=== PATIENT | male | born 1945 | race Caucasian/White ===

== ENCOUNTER 2018-02-15 18:29 | Emergency (ER) | payer OTHER ==
--- NOTE | 2018-02-15 18:33 | ER Report ---
History and Physical Time Seen By MD: 18:32 HPI/ROS CHIEF COMPLAINT: Syncopal episode HISTORY OF PRESENT ILLNESS: This is a 72-year-old male presents to emergency department for a syncopal episode patient states that he had just ordered dinner at a fast food restaurant and as the last thing he remembers, then he remembers being on the floor, people surrounding him and making sure he was okay. EMS arrived and transfer the patient in the emergency department. Patient arrives alert and oriented. He does have a large hematoma to the left posterior scalp. Patient denies headache or C-spine tenderness. Patient is traveling through from a [facility]. Patient is also diabetic, has had bypass surgery and 3 heart attacks, pacemaker and ablation. Patient denies chest pain or shortness of breath. No nausea or vomiting. EMS Accu-Chek 208. Patient denies recent fevers or chills. No recent illnesses. No change in vision. REVIEW OF SYSTEMS: Constitutional: No fever, no chills. Eyes: No discharge. ENT: No sore throat. Cardiovascular: No chest pain, no palpitations. Respiratory: No cough, no shortness of breath. Gastrointestinal: No abdominal pain, no vomiting. Genitourinary: No hematuria. Musculoskeletal: No back pain. Skin: As above. Neurological: As above. Allergies: Coded Allergies: niacin (Verified Allergy, Unknown, 02/15/18) FLUSHING AND MUSCLES CRAMPS Home Meds Reported Medications Insulin Aspart 100 Un/Ml Pen (NOVOLOG FLEXPEN) 100 Unit/1 Ml Insuln.pen, 100 UNIT SQ TID, ML 02/15/18 Vitamin B Complex (VITAMIN B COMPLEX) 1 Each Capsule, 1 EACH PO QDAY, CAPSULE 02/15/18 Warfarin Sodium (WARFARIN SODIUM) 5 Mg Tablet, 5 MG PO QDAY, TAB 02/15/18 Omeprazole (OMEPRAZOLE) 20 Mg Capsule.dr, 2 CAP PO QDAY, CAP 02/15/18 Multivitamin With Minerals (MULTIPLE VITAMIN) 1 Each Tablet, 1 EACH PO BID, TAB 02/15/18 Metoprolol Succinate (METOPROLOL SUCCINATE) 50 Mg Tab.er.24h, 4 TAB PO QDAY, TAB 02/15/18 Metformin Hcl (METFORMIN HCL) 1,000 Mg Tablet, 1 TAB PO BID, TAB 02/15/18 Magnesium Oxide (MAG-OXIDE) 400 Mg Tablet, 400 MG PO BID 8/3/18 Lisinopril (LISINOPRIL) 40 Mg Tablet, 40 MG PO QDAY, TAB 02/15/18 Insulin Glargine 100 Un/Ml Pen (LANTUS SOLOSTAR PEN) 100 Unit/1 Ml Insuln.pen, 50 UNIT SQ BID, ML 02/15/18 Furosemide (FUROSEMIDE) 40 Mg Tablet, 1 TAB PO BID, TAB 02/15/18 [place]-3/Dha/Epa/Fish Oil (Fish Oil 1,000 mg Softgel) 1,000 Mg (120 Mg-180 Mg) Capsule, PO BID 02/15/18 Ferrous Sulfate (FERROUS SULFATE) 325 Mg Tablet, 325 MG PO TID 02/15/18 Carboxymethylcellulose Sod (REFRESH CELLUVISC) 0.4 Ml Soln, 0.4 ML OU QID 02/15/18 Calcium Carbonate/Vitamin D3 (CALCIUM CARB 500 MG TAB CHEW) 1 Each Tab.chew, 1 EACH PO TID, TAB.CHEW 02/15/18 Atorvastatin Calcium (LIPITOR) 40 Mg Tablet, 2 TAB PO QDAY, TAB 02/15/18 Aspirin (ASPIRIN EC) 81 Mg Tablet.dr, 81 MG PO QDAY, TAB 02/15/18 Amlodipine Besylate (AMLODIPINE BESYLATE) 10 Mg Tablet, 1 TAB PO QDAY, TAB 02/15/18 Past Medical/Surgical History The patient has a past medical and surgical history of 3 myocardial infarctions , atrial fibrillation, hypertension, pacemaker, bypass surgery, hypercholesterolemia, diabetes, coronary artery stents. Reviewed Nurses Notes: Yes Constitutional Vital Sign - Last 24 Hours 02/15/18 02/15/18 02/15/18 02/15/18 18:44 18:46 19:13 19:15 Temp 97.8 Pulse 82 77 78 Resp 16 B/P (MAP) 130/108 121/77 (92) 123/81 (95) Pulse Ox 85 O2 Delivery Room Air O2 Flow Rate 2.0 02/15/18 02/15/18 02/15/18 02/15/18 19:18 20:00 20:30 20:45 Pulse 78 80 83 Resp 22 17 B/P (MAP) 122/68 (86) 115/77 (90) Pulse Ox 95 95 02/15/18 02/15/18 02/15/18 02/15/18 21:00 21:11 21:16 21:30 Pulse 69 64 Resp 16 B/P (MAP) 117/76 (90) 133/69 (90) Pulse Ox 94 95 O2 Delivery Room Air 02/15/18 22:00 Pulse 64 B/P (MAP) 120/68 (85) Pulse Ox 95 O2 Delivery Room Air Intake and Output 02/15/18 02/15/18 02/16/18 15:00 23:00 07:00 Intake Total 500 ml Balance 500 ml Physical Exam General Appearance: The patient is alert, has no immediate need for airway protection and no signs of toxicity. Eyes: Pupils equal and round no pallor or injection. EOMs intact. No nystagmus. ENT, Mouth: Mucous membranes are moist. Respiratory: There are no retractions, lungs are clear to auscultation. Cardiovascular: Irregular rate and rhythm, no murmurs, clicks or rubs. Gastrointestinal: Abdomen is soft and non tender, no masses, bowel sounds normal. Neurological: Alert and oriented 4. Moving all extremities. Following all commands. No focal neuro deficits. Skin: Hematoma to the left posterior scalp no lacerations. Musculoskeletal: Neck is supple non tender. Extremities are nontender, nonswollen and have full range of motion. DIFFERENTIAL DIAGNOSIS: After history and physical exam differential diagnosis was considered for syncope including but not limited to vasovagal syncope, arrhythmia, dehydration, and blood loss. Medical Decision Making Data Points Result Diagram: 02/15/18182902/15/18 1830 Laboratory Hematology Test 02/15/18 18:30 02/15/18 21:20 02/15/18 21:21 Red Blood Count 4.67 M/uL (4.00-5.60) Mean Corpuscular Volume 89.4 fL (80.0-96.0) Mean Corpuscular Hemoglobin 30.9 pg (26.0-33.0) Mean Corpuscular Hemoglobin Concent 34.6 g/dL (32.0-36.0) Red Cell Distribution Width 16.9 % (11.5-14.5) Mean Platelet Volume 10.1 fL (7.2-11.1) Neutrophils (%) (Auto) 75.8 % (39.4-72.5) Lymphocytes (%) (Auto) 10.3 % (17.6-49.6) Monocytes (%) (Auto) 7.1 % (4.1-12.4) Eosinophils (%) (Auto) 4.2 % (0.4-6.7) Basophils (%) (Auto) 2.6 % (0.3-1.4) Nucleated RBC Relative Count (auto) 0.0 /100WBC Neutrophils # (Auto) 8.1 K/uL (2.0-7.4) Lymphocytes # (Auto) 1.1 K/uL (1.3-3.6) Monocytes # (Auto) 0.8 K/uL (0.3-1.0) Eosinophils # (Auto) 0.4 K/uL (0.0-0.5) Basophils # (Auto) 0.3 K/uL (0.0-0.1) Nucleated RBC Absolute Count (auto) 0.00 K/uL Sodium Level 142 mmol/L (137-145) Potassium Level 3.3 mmol/L (3.5-5.0) Chloride Level 100 mmol/L (98-107) Carbon Dioxide Level 27 mmol/L (22-30) Blood Urea Nitrogen 36 mg/dl (9-21) Creatinine 1.40 mg/dl (0.66-1.25) Glomerular Filtration Rate Calc 49.7 Random Glucose 189 mg/dl (75-110) Calcium Level 9.1 mg/dl (8.4-10.2) Total Bilirubin 0.8 mg/dl (0.2-1.3) Aspartate Amino Transf (AST/SGOT) 35 U/L (0-35) Alanine Aminotransferase (ALT/SGPT) 34 U/L (0-56) Alkaline Phosphatase 115 U/L (0-126) Total Protein 7.4 g/dl (6.3-8.2) Albumin 4.4 g/dl (3.5-5.0) Troponin I 0.055 ng/ml Urine Color Yellow Urine Clarity Clear Urine pH 5.0 pH (4.8-9.5) Urine Specific [place] 1.010 Urine Protein Negative mg/dL (NEGATIVE) Urine Glucose (UA) Negative mg/dL (NEGATIVE) Urine Ketones Negative mg/dL (NEGATIVE) Urine Blood Small (NEGATIVE) Urine Nitrite Negative (NEGATIVE) Urine Bilirubin Negative (NEGATIVE) Urine Urobilinogen 4.0 mg/dL (0.2-1.9) Urine Leukocyte Esterase Negative (NEGATIVE) Urine RBC 3 /HPF (0-2/HPF) Urine WBC 1 /HPF (0-5/HPF) Urine Squamous Epithelial Cells None /LPF (</=FEW) Urine Bacteria Negative /HPF (NONE-FEW) Urine Mucus Few /HPF (NONE-FEW) Chemistry Test 02/15/18 18:30 02/15/18 21:20 02/15/18 21:21 White Blood Count 10.6 k/uL (4.5-11.0) Red Blood Count 4.67 M/uL (4.00-5.60) Hemoglobin 14.4 g/dL (14.0-18.0) Hematocrit 41.7 % (42.0-52.0) Mean Corpuscular Volume 89.4 fL (80.0-96.0) Mean Corpuscular Hemoglobin 30.9 pg (26.0-33.0) Mean Corpuscular Hemoglobin Concent 34.6 g/dL (32.0-36.0) Red Cell Distribution Width 16.9 % (11.5-14.5) Platelet Count 239 K/uL (150-450) Mean Platelet Volume 10.1 fL (7.2-11.1) Neutrophils (%) (Auto) 75.8 % (39.4-72.5) Lymphocytes (%) (Auto) 10.3 % (17.6-49.6) Monocytes (%) (Auto) 7.1 % (4.1-12.4) Eosinophils (%) (Auto) 4.2 % (0.4-6.7) Basophils (%) (Auto) 2.6 % (0.3-1.4) Nucleated RBC Relative Count (auto) 0.0 /100WBC Neutrophils # (Auto) 8.1 K/uL (2.0-7.4) Lymphocytes # (Auto) 1.1 K/uL (1.3-3.6) Monocytes # (Auto) 0.8 K/uL (0.3-1.0) Eosinophils # (Auto) 0.4 K/uL (0.0-0.5) Basophils # (Auto) 0.3 K/uL (0.0-0.1) Nucleated RBC Absolute Count (auto) 0.00 K/uL Glomerular Filtration Rate Calc 49.7 Calcium Level 9.1 mg/dl (8.4-10.2) Total Bilirubin 0.8 mg/dl (0.2-1.3) Aspartate Amino Transf (AST/SGOT) 35 U/L (0-35) Alanine Aminotransferase (ALT/SGPT) 34 U/L (0-56) Alkaline Phosphatase 115 U/L (0-126) Total Protein 7.4 g/dl (6.3-8.2) Albumin 4.4 g/dl (3.5-5.0) Troponin I 0.055 ng/ml Urine Color Yellow Urine Clarity Clear Urine pH 5.0 pH (4.8-9.5) Urine Specific [place] 1.010 Urine Protein Negative mg/dL (NEGATIVE) Urine Glucose (UA) Negative mg/dL (NEGATIVE) Urine Ketones Negative mg/dL (NEGATIVE) Urine Blood Small (NEGATIVE) Urine Nitrite Negative (NEGATIVE) Urine Bilirubin Negative (NEGATIVE) Urine Urobilinogen 4.0 mg/dL (0.2-1.9) Urine Leukocyte Esterase Negative (NEGATIVE) Urine RBC 3 /HPF (0-2/HPF) Urine WBC 1 /HPF (0-5/HPF) Urine Squamous Epithelial Cells None /LPF (</=FEW) Urine Bacteria Negative /HPF (NONE-FEW) Urine Mucus Few /HPF (NONE-FEW) Urinalysis Test 02/15/18 21:21 Urine Color Yellow Urine Clarity Clear Urine pH 5.0 pH (4.8-9.5) Urine Specific [place] 1.010 Urine Protein Negative mg/dL (NEGATIVE) Urine Glucose (UA) Negative mg/dL (NEGATIVE) Urine Ketones Negative mg/dL (NEGATIVE) Urine Blood Small (NEGATIVE) Urine Nitrite Negative (NEGATIVE) Urine Bilirubin Negative (NEGATIVE) Urine Urobilinogen 4.0 mg/dL (0.2-1.9) Urine Leukocyte Esterase Negative (NEGATIVE) Urine RBC 3 /HPF (0-2/HPF) Urine WBC 1 /HPF (0-5/HPF) Urine Squamous Epithelial Cells None /LPF (</=FEW) Urine Bacteria Negative /HPF (NONE-FEW) Urine Mucus Few /HPF (NONE-FEW) EKG/Imaging EKG Interpretation 12 lead EKG: Time of EKG 2014 Rhythm: Sinus rhythm with a first-degree AV block. [place]: Left QRS: normal ST segments: No ST depression or elevation identified. The patient does have a pacemaker for a known A. fib, the patient is in and out of A. fib and sinus rhythm, I did get a follow-up EKG at 2018, showing A. fib with a rate of 90 bpm. No pacer spikes. 12 lead EKnd EKG, 2018 Rhythm: Atrial fibrillation, 90 bpm. [place]: Left QRS: normal ST segments: No ST depression or elevation identified. [ ] Imaging Location: [facility] [place] Patient: Tutu Tomlinson : 1945 Visit/Account:[id number] Date of Sevice: 02/15/2018 SHOULDER MIN 2 VIEWS RIGHT COMPARISONS: None. ADDITIONAL PERTINENT HISTORY: Fall with pain FINDINGS: Osseous structures: Subchondral sclerosis and osteophyte formation involving the inferior medial aspects of the right glenohumeral joint as well as involving the right acromioclavicular joint. Joint spaces: Mild joint space narrowing involving the right glenohumeral joint and the right acromioclavicular joint. Surrounding soft tissues: Negative. IMPRESSION: 1. Osteoarthritic changes involving the right shoulder. 2. No acute appearing bony abnormalities. Report Dictated By: Jony Watson MD at 02/15/2018 9:03 PM Report E-Signed By: Jony Watson MD at 02/15/2018 9:04 PM WSN:[id number] Location: [facility] [place] Patient: Tutu Tomlinson : 1945 Visit/Account:[id number] Date of Sevice: 02/15/2018 C-SPINE W/O CONTRAST COMPARISONS: None. ADDITIONAL PERTINENT HISTORY: Syncope with head injury TECHNIQUE: Multiple axial images were obtained from the skull base through the upper thoracic spine with coronal and sagittal reformatted images obtained without IV contrast. One of the following dose optimization techniques was utilized in the performance of this exam: Automated exposure control; adjustment of the mA and/or kV according to the patient's size; or use of an iterative reconstruction technique. Specific details can be referenced in the facility's radiology CT exam operational policy. FINDINGS. Vertebral body heights and alignment: Negative. Vertebral bodies: Anteriorly and posteriorly directed osteophytes at multiple levels. Mild facet hypertrophic changes. Disc spaces: Disc space narrowing at multiple levels. Cranial cervical junction: Negative. Cervical thoracic junction: Negative. Surrounding soft tissues: Calcified atherosclerotic plaque involving the thoracic aortic arch as well as the origins of the great vessels. Lung apices: Negative. IMPRESSION: 1. Spondylitic change involving the cervical spine. 2. No acute appearing bony abnormalities. Report Dictated By: Jony Watson MD at 02/15/2018 8:10 PM Report E-Signed By: Jony Watson MD at 02/15/2018 8:13 PM WSN:[id number] Location: [facility] [place] Patient: Tutu Tomlinson : 1945 Visit/Account:[id number] Date of Sevice: 02/15/2018 2 VIEWS CHEST INDICATION: Syncope. COMPARISON: None available FINDINGS: Cardiac silhouette is enlarged. Mediastinal silhouette and pulmonary vessels are within normal limits. Left subclavian pacemaker is in place. Sternotomy changes. There is no focal infiltrate or lobar consolidation. There is no pneumothorax or pleural effusion. No nodule. Upper abdomen is unremarkable. No acute bony abnormality. IMPRESSION: 1. Enlarged cardiac silhouette without edema or infiltrate. Report Dictated By: Jewel Ventura at 02/15/2018 8:02 PM Report E-Signed By: Jewel Ventura at 02/15/2018 8:04 PM WSN:[id number] Location: [facility] [place] Patient: Tutu Tomlinson : 1945 Visit/Account:[id number] Date of Sevice: 02/15/[address] scan without contrast COMPARISONS: None ADDITIONAL PERTINENT HISTORY: Syncope with head injury TECHNIQUE: Multiple axial images were obtained from the skull base to the vertex without IV contrast. One of the following dose optimization techniques was utilized in the performance of this exam: Automated exposure control; adjustment of the mA and/or kV according to the patient's size; or use of an iterative reconstruction technique. Specific details can be referenced in the facility's radiology CT exam operational policy. FINDINGS: Midline shift: Negative Ventricles: Negative Brain parenchyma: Patchy hypoattenuation within the periventricular and subcortical white matter, nonspecific but likely representing small vessel ischemic change on a chronic basis. No intraparenchymal hemorrhage or mass effect. Extra-axial spaces: Negative Intracranial vasculature: Negative Osseous structures: Negative Paranasal sinuses and mastoid air cells: Moderate sized mucus retention cyst involving the right maxillary sinus. Surrounding soft tissues and orbits: Left parietal scalp soft tissue hematoma. Otherwise negative IMPRESSION: 1. Left parietal scalp soft tissue hematoma. 2. Age-related changes as described above. 3. No evidence of acute intracranial pathology. Report Dictated By: Jony Watosn MD at 02/15/2018 8:13 PM Report E-Signed By: Jony Watson MD at 02/15/2018 8:16 PM WSN:[id number] ED Course/Re-evaluation Clinical Indication for ER IV: Hydration, IV Access ED Course The patient was admitted to room. A history and physical were obtained. Current diagnoses were considered. An IV was started. A 500 mL bolus was given. A CBC, CMP, troponin were obtained. Chemistries showing potassium 3.3, BUN 36, creatinine 1.4, glucose 189. 1st troponin 0.056, in the indeterminate range, I did discuss this with the patient, I did tell him I did like to repeat the troponin, the patient is agreeable with this, the delta troponin was 0.055. Basically unchanged, patient has denied chest pain during his stay in the emergency Department he denied chest pain during his syncopal episode. UA, showing small blood which could be from the fall, no urinary complaints. CT of the head neck were negative. Negative chest x-ray, negative right shoulder. Patient was also given 650 mg Tylenol for his aches and pains. The patient had no other questions or concerns at this time and was discharged home. I did tell the patient that his syncopal episode could be secondary to the altitude and retreat to a lower elevation as soon as possible. I also instructed the patient to wear his CPAP tonight. The patient's hematoma to the left posterior scalp was covered with a dressing and secured. 02/15/2018 8:47:37 pm I did review the results with the patient, negative head negative neck, negative chest. Lab studies relatively unremarkable. I did tell the patient that the one test that was in the indeterminate range was the troponin. I did recommend that he stay for an additional 2-3 hours for a repeat troponin. The patient is agreeable. He is also now complaining of right shoulder pain that seems to be worse with movement, I did order an x-ray of the right shoulder. Decision to Disposition Date: Feb 15, 2018 Decision to Disposition Time: 22:09 Depart Departure Latest Vital Signs Vital Signs Date Time Temp Pulse Resp B/P (MAP) Pulse Ox O2 Delivery O2 Flow Rate FiO2 02/15/18 22:00 64 120/68 (85) 95 Room Air 02/15/18 21:00 16 02/15/18 18:46 2.0 02/15/18 18:44 97.8 Impression: Primary Impression: Syncopal episodes Condition: Improved Disposition: HOME OR SELF-CARE Patient Instructions: Syncope (ED) Additional Instructions: You're syncopal episode could be secondary to the altitude, you are from sea [place] at 7200 feet, my recommendation is to retreat to a lower elevation as soon as possible. Be sure to drink plenty of fluids, be sure to usual or CPAP at night. Be sure to check blood sugar regularly. Continue taking your current medications. You're head CT was negative for bleeding. You're cervical spine CT was negative for anything concerning. Chest x-ray was negative for anything concerning. Should she develop chest pain, shortness of breath headaches or any lightheadedness during her vacation go to the nearest emergency department for reevaluation. When he returned home be sure to follow-up with your primary care provider. Return to the emergency department for any other concerns or worsening symptoms. Problem Qualifiers Primary Impression: Syncopal episodes Syncope type: unspecified Qualified Codes: R55 - Syncope and collapse ANA PIÑA DIRECTOR OF MATERIALS MANAGEMENT-BC Feb 15, 2018 18:32
[2018-02-15] MEDS ORDERED: NS(*) 0.9% 500 ML BAG 500 ML IV ONE (18:51)
[2018-02-15 19:07] LABS: PLATELET COUNT, AUTOMATED 239 K/uL (150-450)
--- NOTE | 2018-02-15 20:07 | RADIOLOGY IMAGING REPORT ---
FACILITY: [facility] - [place], [place] PATIENT NAME: Tutu Tomlinson : 1945 MR: [id number] V: [id number] EXAM DATE: ORDERING PHYSICIAN: ANA PIÑA TECHNOLOGIST: Location: [facility] Patient: Tutu Tomlinson : 1945 Visit/Account:[id number] Date of Sevice: 02/15/2018 2 VIEWS CHEST INDICATION: Syncope. COMPARISON: None available FINDINGS: Cardiac silhouette is enlarged. Mediastinal silhouette and pulmonary vessels are within normal limits . Left subclavian pacemaker is in place. Sternotomy changes. There is no focal infiltrate or lobar consolidation. There is no pneumothorax or pleural effusion. No nodule. Upper abdomen is unremarkable. No acute bony abnormality. IMPRESSION: 1. Enlarged cardiac silhouette without edema or infiltrate. Report Dictated By: Jewel Ventura at 02/15/2018 8:02 PM Report E-Signed By: Jewel Ventura at 02/15/2018 8:04 PM WSN:[id number]
--- NOTE | 2018-02-15 20:17 | RADIOLOGY IMAGING REPORT ---
FACILITY: [facility] - [place] PATIENT NAME: Tutu Tomlinson : 1945 MR: [id number] V: [id number] EXAM DATE: ORDERING PHYSICIAN: ANA PIÑA TECHNOLOGIST: [place] [facility] [place] Patient: Tutu Tomlinson : 1945 Visit/Account:[id number] Date of Sevice: 02/15/2018 C-SPINE W/O CONTRAST COMPARISONS: None. ADDITIONAL PERTINENT HISTORY: Syncope with head injury TECHNIQUE: Multiple axial images were obtained from the skull base through the upper thoracic spine with coronal and sagittal reformatted images obtained without IV contrast. One of the following dose optimization techniques was utilized in the performance of this exam: Automated exposure control; adj ustment of the mA and/or kV according to the patient's size; or use of an iterative reconstruction t echnique. Specific details can be referenced in the facility's radiology CT exam operational policy. FINDINGS. Vertebral body heights and alignment: Negative. Vertebral bodies: Anteriorly and posteriorly directed osteophytes at multiple levels. Mild facet hype rtrophic changes. Disc spaces: Disc space narrowing at multiple levels. Cranial cervical junction: Negative. Cervical thoracic junction: Negative. Surrounding soft tissues: Calcified atherosclerotic plaque involving the thoracic aortic arch as well as the origins of the great vessels. Lung apices: Negative. IMPRESSION: 1. Spondylitic change involving the cervical spine. 2. No acute appearing bony abnormalities. Report Dictated By: Jony Watson MD at 02/15/2018 8:10 PM Report E-Signed By: Jony Watson MD at 02/15/2018 8:13 PM WSN:[id number]
--- NOTE | 2018-02-15 20:19 | RADIOLOGY IMAGING REPORT ---
FACILITY: [facility] PATIENT NAME: Tutu Tomlinson : 1945 MR: [id number] V: [id number] EXAM DATE: ORDERING PHYSICIAN: ANA PIÑA TECHNOLOGIST: Location: [facility] [place] Patient: Tutu Tomlinson : 1945 Visit/Account:[id number] Date of Sevice: 02/15/[address] scan without contrast COMPARISONS: None ADDITIONAL PERTINENT HISTORY: Syncope with head injury TECHNIQUE: Multiple axial images were obtained from the skull base to the vertex without IV contrast . One of the following dose optimization techniques was utilized in the performance of this exam: Aut omated exposure control; adjustment of the mA and/or kV according to the patient's size; or use of an iterative reconstruction technique. Specific details can be referenced in the facility's radiology CT exam operational policy. FINDINGS: Midline shift: Negative Ventricles: Negative Brain parenchyma: Patchy hypoattenuation within the periventricular and subcortical white matter, no nspecific but likely representing small vessel ischemic change on a chronic basis. No intraparenchyma l hemorrhage or mass effect. Extra-axial spaces: Negative Intracranial vasculature: Negative Osseous structures: Negative Paranasal sinuses and mastoid air cells: Moderate sized mucus retention cyst involving the right max illary sinus. Surrounding soft tissues and orbits: Left parietal scalp soft tissue hematoma. Otherwise negative IMPRESSION: 1. Left parietal scalp soft tissue hematoma. 2. Age-related changes as described above. 3. No evidence of acute intracranial pathology. Report Dictated By: Jony Watson MD at 02/15/2018 8:13 PM Report E-Signed By: Jony Watson MD at 02/15/2018 8:16 PM WSN:[id number]
[2018-02-15] MEDS ORDERED: ACETAMINOPHEN 325 MG TAB PO ONE (20:40)
--- NOTE | 2018-02-15 21:09 | RADIOLOGY IMAGING REPORT ---
FACILITY: [facility] - [place] PATIENT NAME: Tutu Tomlinson : 1945 MR: [id number] V: [id number] EXAM DATE: ORDERING PHYSICIAN: ANA PIÑA TECHNOLOGIST: Location: [facility] Patient: Tutu Tomlinson : 1945 Visit/Account:[id number] Date of Sevice: 02/15/2018 SHOULDER MIN 2 VIEWS RIGHT COMPARISONS: None. ADDITIONAL PERTINENT HISTORY: Fall with pain FINDINGS: Osseous structures: Subchondral sclerosis and osteophyte formation involving the inferior medial aspe cts of the right glenohumeral joint as well as involving the right acromioclavicular joint. Joint spaces: Mild joint space narrowing involving the right glenohumeral joint and the right acromio clavicular joint. Surrounding soft tissues: Negative. IMPRESSION: 1. Osteoarthritic changes involving the right shoulder. 2. No acute appearing bony abnormalities. Report Dictated By: Jony Watson MD at 02/15/2018 9:03 PM Report E-Signed By: Jony Watson MD at 02/15/2018 9:04 PM WSN:[id number]
[2018-02-15] MEDS ORDERED: OMEG10007 PO (21:41)
[2018-02-15] MEDS ORDERED: MULT-1335 PO (21:41)
[2018-02-15] MEDS ORDERED: METF-421 PO (21:41)
[2018-02-15] MEDS ORDERED: ASPI81TA86 PO (21:41)
[2018-02-15] MEDS ORDERED: [UNRECOGNIZED DRUG - OTHER] OU (21:41)
[2018-02-15] MEDS ORDERED: VITA1CAP46 PO (21:41)
[2018-02-15] MEDS ORDERED: CALC-605 PO (21:41)
[2018-02-15] MEDS ORDERED: WARF5TAB23 PO (21:41)
[2018-02-15] MEDS ORDERED: FURO-47 PO (21:41)
[2018-02-15] MEDS ORDERED: INSU100I35 SQ (21:41)
[2018-02-15] MEDS ORDERED: ATOR40TA24 PO (21:41)
[2018-02-15] MEDS ORDERED: MAGN400T4 PO (21:41)
[2018-02-15] MEDS ORDERED: METO50TA19 PO (21:41)
[2018-02-15] MEDS ORDERED: LISI-374 PO (21:41)
[2018-02-15] MEDS ORDERED: FERR-53 PO (21:41)
[2018-02-15] MEDS ORDERED: OMEP-125 PO (21:41)
[2018-02-15] MEDS ORDERED: AMLO-99 PO (21:41)
[2018-02-15] MEDS ORDERED: INSU100I30 SQ (21:41)
[2018-02-15 22:00] VITALS: BP 120/68
--- NOTE | 2018-02-15 23:20 | EKG ---
FACILITY: [facility] - [place], [place] PATIENT NAME: LEONARDA LU : [id number] MR: [id number] V: [id number] EXAM DATE: ORDERING PHYSICIAN: ANA PIÑA TECHNOLOGIST: MORRIS Fernández Reason : Blood Pressure : / mmHG Vent. Rate : 090 BPM Atrial Rate : 107 BPM P-R Int : 000 ms QRS Dur : 152 ms QT Int : 428 ms P-R-T Axes : 000 -55 118 degrees QTc Int : 523 ms Underlying rhythm appears to be sinus with intermittent paced rhythm. Left axis deviation Abnormal ECG No previous ECGs available Confirmed by OBI MORFIN ([id number] on 02/16/2018 2:49:59 AM Referred By: Confirmed By:OBI MORFIN
== END 2018-02-15 22:31 | disposition home or self-care (01) ==
LOC: ER 18:36
DX: R55 Syncope and collapse (principal); I25.2 Old myocardial infarction; I10 Essential (primary) hypertension; E78.00 Pure hypercholesterolemia, unspecified; E11.9 Type 2 diabetes mellitus without complications; I48.91 Unspecified atrial fibrillation; Z79.4 Long term (current) use of insulin; Z79.01 Long term (current) use of anticoagulants; Z95.0 Presence of cardiac pacemaker
CPT/HCPCS: 36415; 36416; 70450; 71046; 72125; 73030; 81001; 82948; 84484; 85025; 93005; 96360; 96361; 99284; J7040; 82040; 82247; 82310; 82374; 82435; 82565; 82947; 84075; 84132; 84155; 84295; 84450; 84460; 84520

== ENCOUNTER → 2018-02-15 | Outpatient (CLI) | payer OTHER ==
[~2018-02-15] MED LIST: AMLO-99 PO; ASPI81TA86 PO; ATOR40TA24 PO; CALC-605 PO; FERR-53 PO; FURO-47 PO; INSU100I30 SQ; INSU100I35 SQ; LISI-374 PO; MAGN400T4 PO; METF-421 PO; METO50TA19 PO; MULT-1335 PO; OMEG10007 PO; OMEP-125 PO; VITA1CAP46 PO; WARF5TAB23 PO; [UNRECOGNIZED DRUG - OTHER] OU
== END ==
LOC: AMB 17:54
PROVIDERS: ATTEND Nurse Practitioner
DX: R55 Syncope and collapse (principal)
CPT/HCPCS: A0425; A0427